=== PATIENT | female | born 1945 | race Asian ===

== ENCOUNTER 2018-03-16 20:16 | Inpatient (IN) | payer OTHER ==
[~2018-03-16] VITALS: Ht 147.3 cm; Wt 49.5 kg
[2018-03-16] MEDS ORDERED: LEVOTHYROXINE75 MCG PO (21:03)
[2018-03-16] MEDS ORDERED: POTASSIUM CHLO10 ME1 PO (21:03)
[2018-03-16] MEDS ORDERED: LOSARTAN POTASS50 MG PO (21:04)
[2018-03-16] MEDS ORDERED: HYDROCHLOROTHIA25 MG PO (21:04)
[2018-03-16] MEDS ORDERED: OMEPRAZOLE20 MG PO (21:05)
--- NOTE | 2018-03-16 23:15 | NUR ---
RECEIEVED PT TO FLOOR VIA STRETCHER. PT IS A/O. FAMILY AT BEDSIDE. PT REPORTS NO PAIN AT THIS TIME. ORIENTED TO ROOM. MEDICATION INFUSING. RESPIRATIONS EQUAL. ASSESSMENT COMPLETED.
--- NOTE | 2018-03-16 23:38 | NUR ---
VITALS AND I&OS DONE AND CHARTED. ASKED PT DAUGHTER IF SHE WANTED ANYTHING TO DRINK? SHE STATED NO. BEDSIDE TABLE AND CALL LIGHT WITHIN REACH.
--- NOTE | 2018-03-17 00:05 | NUR ---
BLOOD STARTED, DOUBLE CHECKED BY DIANA RN. VS TAKEN AND STABLE. THIS RN WILL SIT WITH PT.
--- NOTE | 2018-03-17 00:20 | NUR ---
NO REACTIONS AT THIS TIME. VSS. RESPIRATIONS EQUAL AND NONLABORED. REPORTS NO PAIN AT THIS TIME. CALL LIGHT IN REACH. WILL CONT TO MONITOR.
--- NOTE | 2018-03-17 01:35 | NUR ---
VITALS DONE AND CHARTED.
--- NOTE | 2018-03-17 02:17 | NUR ---
PT SBA TO BATHROOM. REPORTS NO PAIN. BACK TO BED. TOLERATED WELL. CALL LIGHT IN REACH.
--- NOTE | 2018-03-17 03:32 | NUR ---
BLOOD COMPLETED. NO ACUTE REATIONS NOTED. PT TOLERATED WELL. VSS. RESPIRATIONS EQUAL AND NONLABORED. NO FLANK PAIN REPORTED.
--- NOTE | 2018-03-17 04:36 | NUR ---
VITALS DONE AND CHARTED. HELPED PT TO THE BATHROOM AND BACK TO BED. BEDSIDE TABLE AND CALL LIGHT WITHIN REACH. SON IN THE ROOM WHEN I LEFT.
--- NOTE | 2018-03-17 06:33 | NUR ---
VITALS AND I&OS DONE AND CHARTED. BEDSIDE TABLE AND CALL LIGHT WITHIN REACH.
--- NOTE | 2018-03-17 07:28 | NUR ---
PATIENT RESTING, EYES CLOSED, CALL LIGHT IN REACH, SON IN ROOM.
--- NOTE | 2018-03-17 07:46 | NUR ---
RECIEVED BEDSIDE REPORT FROM GERMAIN MCNALLY. PT IN BATHROOM. NON-[place] ISLANDER SPEAKING, SON AT BEDSIDE TO TRANSLATE. PT APPEARS TO BE CONFUSED WITH CARES. PT PLESANT, DOES NOT APPEAR TO BE IN PAIN OR DISSTRESS AT THIS TIME.
--- NOTE | 2018-03-17 08:31 | NUR ---
PATIENT RESTING IN BED, SON IN ROOM. RN IN ROOM. THIS EDUCATIONAL TECHNOLOGIST ASSISTED PATIENT TO WASH HANDS AND FACE WITH WARM WASH CLOTH. ORAL CARE SET UP IN BATHROOM FOR PATIENT. VITALS TAKEN. PATIENT CALL LIGHT IN REACH. NO OTHER NEEDS AT THIS TIME.
--- NOTE | 2018-03-17 09:54 | NUR ---
PT SIGNED CONSENT. NO QUESTIONS PER PT AND SON.
--- NOTE | 2018-03-17 10:17 | NUR ---
PT LEFT THE FLOOR TO OR FOR SCOPE. SON WENT WITH PT TO TRANSLATE.
--- NOTE | 2018-03-17 11:14 | NUR ---
PT RETURNED TO FLOOR. REPORT FROM PACU, NO ACTIVE BLEEDS, COLONOSCOPY SCHEDULED FOR 0900 03/18. PT REPORTS SORE THROAT FROM ORAL AIRWAY, NO OTHER PAIN. PROFROL ONLY GIVEN. NO NAUSEA NO VOMITING.
--- NOTE | 2018-03-17 11:18 | NUR ---
03/17/18 1118 PERLA,GILLIAN Zaldivar 1053: ORAL AIRWAY OUT. SON AT BEDSIDE TO HELP TRANSLATE. 1100: PATIENT TRANSITIONED TO ROOM AIR. 1108: PATIENT TRANSFERRED BACK TO M/S ROOM. REPORT GIVEN TO M/S RN.
--- NOTE | 2018-03-17 11:48 | NUR ---
MED REC COMPLETE
--- NOTE | 2018-03-17 13:11 | NUR ---
PATIENT RESTING IN BED, EYES CLOSED. PATIENT AWOKE BREIFLY THIS DIRECTOR DIETETICS DEPARTMENT REMOVED PATIENT'S TELEMETRY UNIT. PATIENT'S SON STATES PATIENT DOES NOT WANT TO SHOWER TODAY. PATIENT CALL LIGHT IN REACH. NO OTHER NEEDS AT THIS TIME.
--- NOTE | 2018-03-17 14:08 | NUR ---
pt is resting in bed safely with call light in reach and son in room. pt did not need anything at the moment
--- NOTE | 2018-03-17 14:35 | NUR ---
PT'S SON REPORTS PT "GOT GOOD REST". MD ADVANCED DIET TO CLEAR LIQUIDS UNTIL MIDNIGHT, GAVE PT APPLE JUICE, WATER, AND JELLO. PT TOLERATING WELL AND VERY HAPPY.
--- NOTE | 2018-03-17 14:39 | EKG ---
[facility] [address] [facility] [place] [address] Signed Normal sinus rhythm Normal ECG No previous ECGs available Confirmed by JASBIR SOLARES MD ([id number]) on 03/17/2018 2:39:35 PM Electronically Signed By: JASBIR SOLARES MD 03/17/18 1439 PATIENT NAME: SALDANASONIYA KEIRA Electrocardiogram DATE OF : 45 PHYSICIAN: JASBIR SOLARES MD REPORT #: [id number] REPORT IS CONFIDENTIAL AND NOT TO BE RELEASED WITHOUT AUTHORIZATION
--- NOTE | 2018-03-17 15:26 | NUR ---
RN GAVE PT BOWEL PREP FLUIDS. EXPLAINED TO SON AND GRANDDAUGHTER THE MEDICATION AND REASONS FOR IT. EXPLAINED TOMORROWS PROCEDURE.
--- NOTE | 2018-03-17 17:46 | NUR ---
PT HAD EGD SCOPE THIS AM. TOLERATED WELL. NO EVIDENCE OF ACTIVE BLEEDING FOUND, MILD PATCHES OF ENERITIS FOUND. ONE AREA SENT FOR BIOPSY. PT RETURNED ON CLEAR LIQUIDS. COLONOSCOPY SCHEDULED FOR 0900 ON 03/18. BOWEL PREP STARTED, NO EFFECT AT THIS TIME. NPO AT MIDNIGHT. PT IS NON-CANADIAN SPEAKING, FAMILY AT BEDSIDE TO ASSIST WITH TRANLATING. PT VOIDING WELL, D5LR RUNNING AT 75ML/HR.
--- NOTE | 2018-03-17 18:29 | NUR ---
Upon entering the room pt was slid down in bed, I assisted her to scoot up higher in bed to a more comfortable position. pt is now resting safely with call light in reach and son in room. pt did not need anything at the moment
--- NOTE | 2018-03-17 20:38 | NUR ---
VITALS AND I&OS DONE AND CHARTED. BEDSIDE TABLE AND CALL LIGHT WITHIN REACH. PT NEEDS NOTHING ELSE AT THIS TIME.
--- NOTE | 2018-03-17 23:45 | NUR ---
PT CALLED AFTER USING RESTROOM TO HELP GET THE BATHROOM CLEANED UP AFTER DIARRHEA EPISODE. CLEANED UP AND PT DENIES FURTHER NEEDS.
--- NOTE | 2018-03-18 | NUR ---
PT PLACED ON NPO STATUS. ABLE TO FINISH BOWEL PREP. NO BM OF THIS TIME. EDUCATED ON MEDICATION. PT AWARE OF PURPOSE. CALL LIGHT IN REACH. REPORTS NO OTHER NEEDS. CHAPSTICK GIVEN FOR COMFORT.
--- NOTE | 2018-03-18 01:30 | NUR ---
MANY FAMILY MEMBERS AT BEDSIDE. EDUCATED ON IMPORTANCE OF PT REST AND SCHEDULE. FAMILY AGREED TO LET PT REST FOR THE NIGHT. EDUCATED SON ON MEDICATION GIVEN AND PENDING RESULTS OF BOWEL PREP. PT IMMEDIATELY OOB AFTER FAMILY LEFT TO BATHROOM FOR LG LIQUID STOOL. BACK TO BED TO REST FOR THE NIGHT. CALL LIGHT IN REACH. REPORTS NO OHTER NEEDS AT THIS TIME.
--- NOTE | 2018-03-18 03:03 | NUR ---
PT OOB TO BATHROOM FOR LG LIQUID BM. BACK TO BED. NO OTHER NEEDS. CALL LIGHT IN REACH.
--- NOTE | 2018-03-18 03:16 | NUR ---
PT INCONTINENT OF BOWEL. OOB TO BATHROOM. LG LIQUID BM. HELPED CLEAN PT AND CHANGE LINENS. PT BACK TO BED. CALL LIGHT IN REACH.
--- NOTE | 2018-03-18 04:00 | NUR ---
PT APPEARS TO BE SLEEPING. CALL LIGHT IN REACH. RESPIRATIONS EQUAL AND NONLABORED.
--- NOTE | 2018-03-18 04:01 | OR ---
[facility] [address] [place], [place] [address] Signed DATE OF OPERATION: 03/17/2018 SURGEON: Abram Everett MD UPPER ENDOSCOPY REPORT PREOPERATIVE DIAGNOSES: 1. Anemia. 2. Melena. POSTOPERATIVE DIAGNOSIS: Very mild distal patchy gastritis. PROCEDURE: EGD with CLOtest and biopsies of the antrum. ESTIMATED BLOOD LOSS: None. FINDINGS: No evidence of any blood in the stomach. No ulcerations. Very minimal patchy inflammation around the antrum. Clinically doubtful if this is the source of her melena. INDICATIONS: Soniya is a 72-year-old lady from [place] who came to the emergency room with upper abdominal pain, melena, nausea and dizziness. She was found to be anemic with a hemoglobin of 7.4. She was admitted to the Internal Medicine Service and received a unit of packed red blood cells last night. Her hemoglobin is now 8.9. Mean cell volume is good at 98. BUN is good at 10 and her creatinine is good at 0.6. INR 0.8, PTT 26 and other tests are all fine. I had been asked to see her as a general surgeon on-call for consideration of upper and lower endoscopy. I checked her records and she went through the same scenario in 2009 and in 2011. She has had upper and lower endoscopy twice before and they were all negative except for a tiny 3 mm polyp in the mid rectum. I had reviewed this with Soniya and her son. We reviewed the idea of repeating the upper and lower endoscopy and if those were negative, she could consider a small bowel follow-through. If that is negative, she could consider a capsule endoscopy. I reviewed upper endoscopy with him along with the risks including, but not limited to gas bloating, crampy abdominal pain, bleeding, perforation, requiring surgery, and missed diagnosis. We also discussed the need for IV conscious sedation. They had expressed Electronically Signed By: ABRAM EVERETT MD 03/18/18 0401 PATIENT NAME: SONIYA SALDANA OPERATIVE REPORT DATE OF : 45 REPORT #: [id number] PHYSICIAN: ABRAM EVERETT MD PCP: RON MCQUEEN MD REPORT IS CONFIDENTIAL AND NOT TO BE RELEASED WITHOUT AUTHORIZATION [facility] [address] [place], [place] [address] Signed understanding and wished to proceed. DESCRIPTION OF PROCEDURE: Soniya was taken into our endoscopy suite and placed in the supine semi-recumbent position. The posterior oropharynx was anesthetized with Hurricaine spray. A bite block was utilized for the case. She was given IV sedation with propofol per our nurse director of music therapy. The adult gastroscope was introduced and advanced quite easily out into the third portion of the duodenum under direct visualization of camera. The duodenum and pyloric channel were unremarkable. The antrum showed just a couple of areas of very superficial patchy erythematous changes. We went and took a biopsy from the antrum along with a biopsy for CLOtest. Upon retroflexion of the scope, the incisura, body, and fundus of the stomach were unremarkable. I saw no evidence of hiatal hernia. The scope was withdrawn up through the area of the GE junction, which was compliant without stricture. I saw no gastric or esophageal varices. There was very minimal disruption to the Z-line. The middle and upper esophagus were fine. After this, the gas was suctioned out and the gastroscope removed. Soniya tolerated the procedure quite well. RECOMMENDATIONS: Soniya and we returned to her hospital bed today. She will go through her liquid bowel prep today and we will do her colonoscopy tomorrow. If that is negative, she should consider a small bowel follow-through and/or a capsule endoscopy. Abram Everett MD ALB/MODL /[id number] cc: MD Abram Hdz MD Copies: RON MCQUEEN MD Electronically Signed By: ABRAM EVERETT MD 03/18/18 0401 PATIENT NAME: SONIYA SALDANA [facility] OPERATIVE REPORT DATE OF : 45 REPORT #: [id number] PHYSICIAN: ABRAM EVERETT MD PCP: RON MCQUEEN MD REPORT IS CONFIDENTIAL AND NOT TO BE RELEASED WITHOUT AUTHORIZATION [address] [address] Signed ABRAM EVERETT MD ~ Electronically Signed By: ABRAM EVERETT MD 07/15/18 0401 PATIENT NAME: SALDANASONIYA KEIRA OPERATIVE REPORT DATE OF : 45 REPORT #: [id number] PHYSICIAN: ABRAM EVERETT MD PCP: RON MCQUEEN MD REPORT IS CONFIDENTIAL AND NOT TO BE RELEASED WITHOUT AUTHORIZATION
--- NOTE | 2018-03-18 04:01 | CONS ---
[facility] [address] [place], [place] [address] Signed DATE OF CONSULTATION: 03/17/2018 CHIEF COMPLAINT: Melena. HISTORY OF PRESENT ILLNESS: Abdulaziz is a 72-year-old [place]ian female who presents with right upper quadrant abdominal pain, some nausea, and dizziness and also 2 days of melena. She came to emergency room for evaluation. We can see that she had anemia with a negative upper and lower endoscopy back in 2009, and again negative upper endoscopy in 2011, and just a tiny 3 mm polyp removed from the rectum in 2011. She has been admitted to our Internal Medicine Service. She did receive 1 unit of packed red blood cells last night. I was asked to see her as a general surgeon on-call for upper endoscopy. Her son is here to interpret and he tells me she has had no vomiting of any blood, no bright red blood per rectum, but the stool is dark. This is very similar to what she had before. PAST MEDICAL HISTORY: Hypertension, hypothyroidism, anemia in 2009, and then acid reflux. PAST SURGICAL HISTORY: Negative upper and lower endoscopy in 2009, negative upper and lower endoscopy in 2011 except a 3 mm polyp in the rectum. SOCIAL HISTORY: She does not smoke or drink. She lives with her son and family. She does not drive. She speaks only [place]ian. Dr. Farooq Mcqueen is her primary care provider. She has 4 children total. They live in [place]. FAMILY HISTORY: Unremarkable. REVIEW OF SYSTEMS: She had 10 systems reviewed and this was unremarkable. ALLERGIES: None. MEDICATIONS: Levothyroxine, potassium chloride, hydrochlorothiazide, losartan, and Prilosec. PHYSICAL EXAMINATION: VITAL SIGNS: Her blood pressure is 138/73, heart rate is 82, respiratory rate 13, temperature is 98.4. She is 98% on room air. She is 4 feet 10 inches at 49 kg. Electronically Signed By: ABRAM EVERETT MD 03/18/18 0401 PATIENT NAME: ABDULAZIZ SALDANA YOU CONSULTATION DATE OF : 45 REPORT #: [id number] PHYSICIAN: ABRAM EVERETT MD PCP: FAROOQ MCQUEEN MD REPORT IS CONFIDENTIAL AND NOT TO BE RELEASED WITHOUT AUTHORIZATION [facility] [address] [place], [place] [address] Signed GENERAL: Abdulaziz is a 72-year-old [place]ian female lying supine in her hospital bed. Her son is at the bedside to interpret. She does not appear systemically ill or toxic. LUNGS: Clear to auscultation bilaterally. HEART: Regular rate and rhythm. ABDOMEN: Soft and flat. She seems to be a little tender in the suprapubic area. LABORATORY DATA: Her white count was 5.4, hemoglobin was 7.4. She received a unit of packed red blood cells and it is up to 8.9. Mean cell volume is good at 98. BUN is 10, creatinine 0.6. Urinalysis negative. INR 0.8. Liver function tests negative. Albumin 3.8. Troponin is negative. Lipase is negative and her PTT is 26. ASSESSMENT AND PLAN: Abdulaziz is a 72-year-old female who presents with recurrent anemia and what probably is some melena. I have been asked to see her for an upper endoscopy today. If that is negative, we will consider a colonoscopy tomorrow. I have reviewed upper and lower endoscopy with her and her son. They are very familiar with that process. They understand there is risk including, but not limited to gas bloating, crampy abdominal pain, bleeding, perforation, requiring surgery, and missed diagnosis. They have expressed understanding and would like to proceed. Abram Everett MD ALB/MODL /[id number] cc: MD Abram Hdz MD Copies: FAROOQ MCQUEEN MD, ANDREW L MD ~ Electronically Signed By: ABRAM EVERETT MD 03/18/18 0401 PATIENT NAME: ABDULAZIZ SALDANA CONSULTATION DATE OF : 45 REPORT #: [id number] PHYSICIAN: ABRAM EVERETT MD PCP: FAROOQ MCQUEEN MD REPORT IS CONFIDENTIAL AND NOT TO BE RELEASED WITHOUT AUTHORIZATION
--- NOTE | 2018-03-18 06:11 | NUR ---
VITALS AND I&OS DONE AND CHARTED. BEDSIDE TABLE AND CALL LIGHT WITHIN REACH. PT NEEDS NOTHING AT THIS TIME.
--- NOTE | 2018-03-18 06:14 | NUR ---
UP SLEPT SOME OFTHE NIGHT. OOB MULTIPLE DEIRDRE FOR BM. PLAN FOR COLONOSCOPY THIS AM. BM'S SEEM TO BE CLEARING UP IN COLOR. D5LR @ 75. PT NPO SINCE MIDNIGHT. SON AT BEDSIDE. PT DOESN'T CALL WHEN NEEDING THE NURSE AT TIMES.
--- NOTE | 2018-03-18 07:30 | NUR ---
RECIEVED BEDSIDE REPORT FROM GERMAIN MCNALLY. PT AWAKE AND IN BATHROOM DURING REPORT. SON SLEEPING IN ROOM. RN REPORTS "GOOD NIGHT, BOWEL PREP EFFECTIVE". PRE-PROCEDURE CHECKLIST STARTED, NEED CONSENT SIGNED. LR ON STRAIGHT TUBING HANGING. INSTRUCTED SON TO TELL PT TO REMOVE ATTEND PRIOR THE PROCEDURE.
--- NOTE | 2018-03-18 08:18 | NUR ---
PATIENT RESTING IN BED, CALL LIGHT IN REACH. PATIENT'S FAMILY IN ROOM. RN IN ROOM. NO OTHER NEEDS AT THIS TIME.
--- NOTE | 2018-03-18 09:08 | NUR ---
PT OFF THE FLOOR FOR PROCEDURE.
--- NOTE | 2018-03-18 09:45 | NUR ---
03/18/18 0945 PERLA,GILLIAN Zaldivar 0943: O2 MASK REMOVED. ORAL AIRWAY OUT.
--- NOTE | 2018-03-18 10:21 | NUR ---
PT RETURNED FROM SURGERY. PT SLEEPY, BUT WAKES TO VOICE AND TOUCH. PT'S SON REPORTS PT HAS NO NAUSEA OR PAIN. NO ACTIVE BLEEDING FOUND. SCD APPLIED TO BILAT LOWER LEGS. DIET ADVANCED TO SOFT.
--- NOTE | 2018-03-18 13:25 | NUR ---
PT APPEARS COMFORTABLE, IN NO DISTRESS. PT'S SON IS SLEEPING AND DID NOT WAKE UP. BED ALARM ON, SCD ON.
--- NOTE | 2018-03-18 14:20 | NUR ---
RN ASKED SON AND PT IF SHE WOULD LIKE A SHOWER. PT GOT OUT OF BED AND QUICKLY WENT TO THE BATHROOM TO GET IN THE SHOWER. RN MIMED TO THE PT TO SIT ON THE SHOWER CHAIR TO CLEAN OFF. IV SITES WRAPED, CLEAN TOWELS AND GOWN PROVIDED. RN HAD SON TO TELL PT TO SIT IN SHOWER CHAIR AND PULL THE BLUE CORD IF SHE HAS ANY ISSUES. SON IS AWARE THERE IS A CLEAN GOWN READY.
--- NOTE | 2018-03-18 14:45 | NUR ---
PT IS OUT OF THE SHOWER, CLEAN GOWN. LINENS CHANGED THIS AM WHILE SHE WAS IN THE PROCEDURE. ORAL CARE ENCOURAGED. IV PIGGYBACK OF MAGNESIUM HANGING AT THIS TIME, PT TOOK POTASSIUM WITH PUDDING. RANDA AT BEDSIDE PER HER REQUEST.
--- NOTE | 2018-03-18 15:45 | NUR ---
PT MAG RIDER INFILTRATED BOTH IVS. IV RESTARTED IN RIGHT HAND, 22G. FLUSHED WELL, BLOOD DRAW BACK. IV MAG RIDER SLOWED TO 30ML/HR. PT TOLERATED WELL. GRANDDAUGHTER IN ROOM TO ASSIST WITH TRANSLATION. INFILTRATED IVS REMOVED.
--- NOTE | 2018-03-18 15:51 | NUR ---
PATIENT RESTING IN BED, FAMILY IN ROOM. CALL LIGHT IN REACH. NO OTHER NEEDS AT THIS TIME.
--- NOTE | 2018-03-18 17:23 | NUR ---
PT HAD COLONOSCOPY THIS AM, NO ACTIVE BLEEDING FOUND. SEVERAL AREAS SENT TO [email or web address]. WILL HAVE SMALL BOWEL FOLLOW UP IN AM. PT DIET ADVANCED TO SOFT FOODS, TOLERATING WELL. PT PREFERS JELLO. DRINKING WATER. VOIDING WELL, MULTIPLE LOOSE BM. PT UP TO SHOWER THIS SHIFT, TOLERATED WELL. BOTH IVs INFILTRATED WITH MAG RIDER. NEW IV IN RIGHT HAND, MAG RIDER INFUSION SLOWED AND COMPLETED. GRANDDAUGHTER IN ROOM TO ASSIST WITH COMMUNICATION.
--- NOTE | 2018-03-18 18:21 | NUR ---
PATIENT SITTING UP ON EDGE OF BED. PATIENT EATING DINNER, FAMILY IN ROOM. CALL LIGHT IN REACH. NO OTHER NEEDS AT THIS TIME.
--- NOTE | 2018-03-18 20:00 | NUR ---
BEDSIDE REPORT FROM COLLIN GROVES. PT IN BED, GRANDDAUGHTER AT BEDSIDE. REPORTS NO PIAN AT THIS TIME. TOLERATING SOFT DIET WITH NO N/V. CALL LIGHT IN REACH. REPORTS NO OTHER NEEDS.
--- NOTE | 2018-03-18 21:13 | NUR ---
VITALS AND I&OS DONE AND CHARTED. BEDSIDE TABLE AND CALL LIGHT WITHIN REACH.
--- NOTE | 2018-03-18 21:13 | NUR ---
ASSESSMENT COMPLETED. PT REPORTS 2/10 PAIN IN LLQ. REOPRTS IT TOLERABLE AT THIS TIME. POSSIBLY RELATED TO DIET AT HOSPITAL. BOWEL TONES ACTIVE. HEART SOUNDS NORMAL. LUNGS CLEAR. CMS INTACT. NO OTHER NEEDS. CALL LIGHT IN REACH. PT INDEPENDENT IN ROOM.
--- NOTE | 2018-03-18 23:46 | NUR ---
FAMILY HAS ARRIVED TO VISIT. NO NEEDS. AT THIS TIME. CALL LIGHT IN REACH.
--- NOTE | 2018-03-19 | NUR ---
PT PLACED ON NPO STATUS FOR SMALL BOWEL FOLLOW THROUGH THIS AM.
--- NOTE | 2018-03-19 02:17 | NUR ---
PT APPEARS TO BE SLEEPING. CALL LIGHT IN REACH. RESPIRAIOTNS EQUAL AND NONLABORED.
--- NOTE | 2018-03-19 04:00 | NUR ---
PT APPEARS TO BE SLEEPING. RESPIRATIONS EQUAL AND NONLABORED.
--- NOTE | 2018-03-19 06:44 | NUR ---
PT SLEPT THROUGH OUT THE NIGHT. SMALL BOWEL FOLLOW THROUGH THIS AM. NO PAIN. TOLERATING SOFT DIET. NPO SINCE MIDNIGHT. VOIDING WELL. ABD SOFT NONDISTENDED.
--- NOTE | 2018-03-19 07:07 | OR ---
[facility] [address], [place] [address] Signed DATE OF OPERATION: 03/18/2018 SURGEON: Abram Everett MD PREOPERATIVE DIAGNOSES: 1. Recurrent anemia. 2. Possible melena. POSTOPERATIVE DIAGNOSIS: Unremarkable colonoscopy including terminal ileum. PROCEDURE PERFORMED: Colonoscopy with random cold biopsies in the terminal ileum and colon. ESTIMATED BLOOD LOSS: None. FINDINGS: There was no source of bleeding noted. There was no diverticulosis. No polyps. No inflammatory changes and no blood in the colon and no black tarry stool. INDICATIONS FOR PROCEDURE: Soniya is a 72-year-old Turkish lady, who I have met previously. She has been in the hospital now the third time with anemia and of course cause her to be dizzy. There was some concern she had melena, but when I talked to her son, he told me there was no black or red stool with our bowel prep. When she came to the emergency room, she was anemic with a hemoglobin of 7.4. She was therefore admitted to the Internal Medicine Service and received 1 unit of packed red blood cells. Her hemoglobin improved to 8.9. Mean cell volume was normal at 98. BUN was good at 10, creatinine 0.6, INR 0.8, and her PTT was 26 and other laboratory work was fine. We performed her third upper endoscopy yesterday since 2009 and we found very minimal tiny bit of patchy gastritis, certainly not enough. This is not enough to explain her anemia. We took our routine biopsies and repeat biopsy for CLOtest as well. Consequently, we put her through a bowel prep yesterday and she comes down today for the colonoscopy. Her son has been able to come and help interpret. Soniya understands the nature of colonoscopy along with its risks including, but not limited to gas bloating, crampy abdominal pain, bleeding, perforation, requiring surgery, and missed diagnosis. She had expressed understanding and wished to proceed. PROCEDURE NOTE: Electronically Signed By: ABRAM EVERETT MD 03/19/18 0707 PATIENT NAME: SONIYA SALDANA OPERATIVE REPORT DATE OF : 45 REPORT #: [id number] PHYSICIAN: ABRAM EVERETT MD PCP: FAROOQ MCQUEEN MD REPORT IS CONFIDENTIAL AND NOT TO BE RELEASED WITHOUT AUTHORIZATION [facility] [address], [place] [address] Signed Soniya was taken into our endoscopy suite and placed in the left lateral decubitus position. She was given IV sedation with propofol per our nurse undercar specialist. A digital rectal exam was performed and this was unremarkable. The adult colonoscope was introduced and advanced all around into the cecum under direct visualization of camera without difficulty. Her prep was quite good. We turned the scope, went into the terminal ileum about 10-12 cm. It was very healthy and no evidence of any inflammation. We went ahead and took a biopsy from the terminal ileum for pathologic review. The scope was withdrawn back into the cecum. We slowly withdrew the scope throughout the colon and rectum. We saw no evidence of any pathology throughout the entire colon or rectum. We went ahead and took several random biopsies in the colon for documentation. Once in the rectum, the scope had been retroflexed and there was just enough room in her rectum and we could not see any pathology above the anal canal. After this, the gas was suctioned out and the colonoscope removed. Soniya tolerated the procedure quite well. RECOMMENDATIONS: Soniya will be returned to her room and written for small-bowel follow-through in the morning. If that is negative, she needs to consider a capsule endoscopy and if that is negative, she should see a office services manager. Abram Everett MD ALB/MODL /[id number] cc: Farooq Mcqueen MD Patient's Chart Abram Everett MD Copies: FAROOQ MCQUEEN MD, ANDREW L MD ~ Electronically Signed By: ABRAM EVERETT MD 03/19/18 0707 PATIENT NAME: SONIYA SALDANA [facility] OPERATIVE REPORT DATE OF : 45 REPORT #: [id number] PHYSICIAN: ABRAM EVERETT MD PCP: FAROOQ MCQUEEN MD REPORT IS CONFIDENTIAL AND NOT TO BE RELEASED WITHOUT AUTHORIZATION
--- NOTE | 2018-03-19 07:21 | NUR ---
RECIEVED BEDSIDE REPORT FROM GERMAIN MCNALLY. PT WAS AWAKE, SITTING ON THE EDGE OF THE BED. PT WAS ABLE TO COMMUNICATE THERE WAS URINE IN THE HAT. SON IS IN ROOM AND REPORTS SHE HAS NO CONCERNS AT THIS TIME. ANEMIA EDUCATION GIVEN IN MALAY.
--- NOTE | 2018-03-19 07:31 | NUR ---
SPOKE WITH [facility] RE: SMALL BOWEL FOLLOW THROUGH FOR THIS AM. THEY WILL SCHEDULE AFTER 0800 WHEN THE RADIOLOGIST COMES IN.
--- NOTE | 2018-03-19 09:56 | NUR ---
PT LAYING IN BED. PT DOES NOT WANT TO SHOWER AT THIS TIME, SAYS SHE WILL CALL IF SHE DOES. DENIES ANY NEEDS. CALL LIGHT WITHIN REACH.
--- NOTE | 2018-03-19 12:46 | NUR ---
PT FINISHED LUNCH. IV TAKEN OUT BY NURSE AND DISCHARGE VS DONE. PT GETTING DRESSED. FAMILY IN ROOM.
--- NOTE | 2018-03-19 14:24 | NUR ---
CALLED AND SPOKE WITH PT'S POA, DAUGHTER IN LAW, GERONIMO. GAVE DISCHARGE INSTRUCTIONS OVER THE PHONE. POA VERBALIZED UNDERSTANDING OF INSTRUCTIONS.
== END 2018-03-19 12:51 | disposition home or self-care (01) | DRG 392 ==
LOC: ED 20:16 → MS 22:44
PROVIDERS: ADMIT Internal Medicine
PROC: 30233N1 Transfusion of Nonautologous Red Blood Cells into Peripheral Vein, Percutaneous Approach (ICD-10-PCS; 2018-03-15)
PROC: 0DBB8ZX Excision of Ileum, Via Natural or Artificial Opening Endoscopic, Diagnostic (ICD-10-PCS; 2018-03-15)
PROC: 0DBE8ZX Excision of Large Intestine, Via Natural or Artificial Opening Endoscopic, Diagnostic (ICD-10-PCS; 2018-03-15)
PROC: 0DB78ZX Excision of Stomach, Pylorus, Via Natural or Artificial Opening Endoscopic, Diagnostic (ICD-10-PCS; principal; 2018-03-16)
DX: K29.70 Gastritis, unspecified, without bleeding (principal); K92.1 Melena; E87.6 Hypokalemia; D50.0 Iron deficiency anemia secondary to blood loss (chronic); E03.9 Hypothyroidism, unspecified; K21.9 Gastro-esophageal reflux disease without esophagitis; R39.15 Urgency of urination; I10 Essential (primary) hypertension
CPT/HCPCS: 36415; 74250; 80048; 80053; 81001; 83690; 83735; 84100; 84484; 85025; 85610; 85730; 86677; 86850; 86900; 86901; 86920; 93005; 93010; 96374; 96375; 99285; J2405; J2704; J3475; J7030; J7120

== ENCOUNTER 2018-10-31 11:50 | Inpatient (IN) | payer OTHER ==
[~2018-10-31] VITALS: Ht 147.3 cm; Wt 48.1 kg
[~2018-10-31 11:50] MED LIST: HYDROCHLOROTHIA25 MG PO; LEVOTHYROXINE75 MCG PO; LOSARTAN POTASS50 MG PO; OMEPRAZOLE20 MG PO; POTASSIUM CHLO10 ME1 PO
--- NOTE | 2018-10-31 14:50 | NUR ---
73 YEAR OLD FEMALE PATIENT ADMITTED TO CCU VIA STRETCHER UNDER DR. SOLARES FROM ED WITH DX OF HYPONA, HYPO K, N/V. PATINE DOES NOT SPEAK SAMI. DAUGHTER IN LAW IS HERE TO HELP WITH ADMISSION. PATIENT HAS BEEN FEELING ILL FOR APPROX LAST 5 DAYS WITH INCREASED N/V OVER LAST 2 DAYS. WAS SEEN IN CLINIC ON 10/29/18. PT MAIN COMPLAINT IS FEELING DIZZY WITH NAUSEA. SLIGHT ABD PAIN WITH PALPATION OF LLQ. HAS LEFT HIP NUMBNESS. K RIDER HANGING TO LEFT HAND SITE.
[2018-10-31] MEDS ORDERED: LEVOTHYROXINE25 MCG PO (15:29)
--- NOTE | 2018-10-31 15:40 | NUR ---
PHENERGAN 6.25 MG IV GIVEN FOR NAUSEA. PATIENT CONTINUE TO C/O LEFT HIP NUMBNESS.
--- NOTE | 2018-10-31 17:00 | NUR ---
PT UP OUT OF BED ON HER OWN. THIS RN ENTERED THE ROOM. PT APPEARS STABLE ON FEET, BUT PULLING ON LINE/TUBES. DENNISE AT BEDSIDE STATES "SHE NEEDS TO GO TO THE BATHRROOM". ASSISTED PT TO CAMMODE. PT NOW BACK TO BED. RE-EDUCATED DOMINICK AND PT THAT SHE NEEDS TO CALL FOR ASSISTANCE SO STAFF CAN HELP HER SAFELY TO THE BATHROOM. BED ALARM PLACED FOR PT SAFETY.
--- NOTE | 2018-10-31 17:48 | NUR ---
Meds reconciled with pharmacy records.
--- NOTE | 2018-10-31 19:00 | NUR ---
DR. SOLARES AWARE OF LABS. ORDERS RECIEVED.
--- NOTE | 2018-10-31 19:10 | NUR ---
D5W AT 650 ML/HR HUNG PER ORDERS. PO KCL 20 MEQ GIVEN. HOB ELEVATED. REPORT TO NEXT SHIFT.
--- NOTE | 2018-10-31 19:30 | NUR ---
PT RESTING IN BED WITH EYES CLOSED. RESP EVEN AND UNLABORED. BED ALARM ON.
--- NOTE | 2018-10-31 19:56 | NUR ---
RECEIVED REPORT FROM GERMAIN AVILES. pt RESTING IN BED WITH EYES CLOSED. WHITEBOARD UPDATED. BED ALARM ON, CURTAIN OPEN TO NURSES STATION.
--- NOTE | 2018-10-31 21:58 | NUR ---
UP TO BSC TO VOID/BACK TO BED. PTS GRANDDAUGHTER STATES THAT PT REPORTS FEELING DIZZY WHILE SHE WAS OUT.
--- NOTE | 2018-11-01 00:19 | NUR ---
FAMILY IN WITH PT. ASSESSMENT COMPLETED, PT DENIES PAIN OR NEEDS AT THIS TIME. AWAKE SITTING UP IN BED TALKING WITH FAMILY.
--- NOTE | 2018-11-01 02:15 | NUR ---
PT AWAKE IN BED WITH FAMILY IN ROOM. UP TO BSC WITH ASSIST, FAMILY STATES SHE STATES SHE IS STILL DIZZY.
--- NOTE | 2018-11-01 04:49 | NUR ---
UP TO BSC TO VOID, BACK TO BED. ASSESSMENT DONE. PT REPORTS STILL FEELING DIZZY TO SON.
--- NOTE | 2018-11-01 06:39 | NUR ---
CALL TO DR SOLARES TO INFORM OF CRITICAL VALUE NA 118. NO NEW ORDERS AT THIS TIME.
--- NOTE | 2018-11-01 08:22 | NUR ---
IV SITE INTACT, NO SWELLING OR REDNESS NOTED, PT DENIES PAIN WITH FLUSH. PT DENIES PAIN, NAUSEA, AND SOB IN GENERAL. PT SPEAKS SCOTTISH ONLY, SON IS AT THE BEDSIDE TRANSLATING. PT IS COOPERATIVE AND POLITE. BREAKFAST ORDERED FOR PT.
--- NOTE | 2018-11-01 09:25 | NUR ---
PT ABLE TO REHANA 30% OF BREAKFAST. PT'S SON AT THE BEDSIDE ABLE TO ANSWER QUESTIONARE FOR MRI SCREENING TOOL. PT DENIES ANY OTHER NEEDS AT THIS TIME.
--- NOTE | 2018-11-01 09:56 | NUR ---
PT ABLE TO SWALLOW PILLS EASILY. PT BOOSTED UP IN BED FOR COMFORT. PT DENIES ANY NAUSEA AT THIS TIME.
--- NOTE | 2018-11-01 11:19 | NUR ---
Pt requested bedside commode. PT stood independently, stand pivot to bedside commode with SBA. Pt reported still feeling dizzy.
--- NOTE | 2018-11-01 13:05 | NUR ---
PT scheduled to go to MRI by wheelchair. Translation service couldn't identify patient language to communicate procedure to PT. MRI rescheduled for afternoon after family returns.
--- NOTE | 2018-11-01 14:10 | NUR ---
pt up ambulated to the bathroom with minimal stand by assist. pt had slightly loose stool, medimum size. pt given sponge bath at the sink in the bathroom, pt able to assist with bath. clean gown and underwear in place. pt ambluated back to bed. warm blankets provided. call light within reach.
--- NOTE | 2018-11-01 16:27 | NUR ---
PT abulated to bedside commode. Transfered to chair after toileting. PT's grandaugher in room with her. Sadi is translating MRI procedure information to PT. Patient is agreeable to procedure.
--- NOTE | 2018-11-01 17:05 | NUR ---
PT LEFT CCU WITH RN, IMAGING PERSONEL, AND FAMILY MEMBER TO GO FOR MRI. PT UP OUT OF CHAIR TO WHEELCHAIR WITH MINIMAL STANDBY ASSIST. PT COOPERATIVE AND ORIENTED X4. FAMILY ABLE TO TRANSLATE EFFECTIVLY.
--- NOTE | 2018-11-01 18:31 | NUR ---
pt sitting up in chair eating dinner. pt family member at the bedside.
--- NOTE | 2018-11-01 19:30 | NUR ---
REPORT RECEIVED FROM ISAI GROVES. PT UP IN CHAIR, GRANDDAUGHTER IN ROOM. IN TO CHECK ON PT, PTS GRANDDAUGHTER INTERPRETTING, STATES PT DENIES PAIN, NAUSEA, DOES NOT NEED ANYTHING AT THIS TIME.
--- NOTE | 2018-11-01 21:24 | NUR ---
UP TO BSC TO VOID. ASSESSMENT DONE. BACK TO BED, WARM BLANKET PROVIDED. PT TRYING TO SLEEP FOR THENIGHT.
--- NOTE | 2018-11-02 00:45 | NUR ---
UP TO BSC. STATES THROUGH HER SON THAT SHE IS A LITTLE BIT DIZZY. BACK TO BED WITH WARM BLANKET.
--- NOTE | 2018-11-02 02:03 | NUR ---
PT RESTING WITH EYES CLOSED. RESP EVEN AND UNLABORED.
--- NOTE | 2018-11-02 05:30 | NUR ---
UP TO BR THEN BACK TO BED. DENIES NEEDS.
--- NOTE | 2018-11-02 08:20 | NUR ---
PATIENTS DAUGHTER IN LAW IS IN ROOM TO TRANSLATE. PATIENT STATED SHE HAS NO COMPLAINTS OF PAIN. PATIENT APPEARS TO BE IN NO OBVIOUS DISCOMFORT OR DISTRESS. PATIENT AMBULATED FROM BED TO BATHROOM TO CHAIR WITH NO DIFFICULTIES. PATIENT BREAKFAST WAS ORDERED. PATIENT WAS GIVEN HER CALL LIGHT. HAD NO QUESTIONS AT THIS TIME.
--- NOTE | 2018-11-02 08:22 | NUR ---
PT awake and in bed. Daughtere in law in room. Pt ambulated well to bathroom with minimal SBA. Pt brushed teeth and washed face/hands in bathroom. Ordered oatmeal with brown sugar and apple juice for breakfast. Pt to be transferred to med/surg unit later this afternoon for additional night observation.
--- NOTE | 2018-11-02 08:39 | NUR ---
DR STEWART INTO SEE PT, PT WILL BE TRANSFERED TO THE M/S UNIT AT SOME POINT TODAY. PT PLACED ON TELE #7. FAMILY INTERPERTED FOR STAFF THIS AM. ALL QUESTION ANSWERED AT THIS TIME.
--- NOTE | 2018-11-02 09:38 | NUR ---
PT ambulated to shower in room 126. PT required minimal assistance. Patient performed hygiene; body wash, shampoo, conditioner independently. PT now sitting in chair in room. Daughter in law in room.
--- NOTE | 2018-11-02 13:15 | NUR ---
REPORT RECEIVED FROM GERMAIN ALEX. PT IS CURRENTLY SITTING UP IN BED. ON TELE #7, HR:79. PT DOES NOT APPEAR TO BE IN ANY DISTRESS. CALL LIGHT WITHIN REACH.
--- NOTE | 2018-11-02 14:06 | NUR ---
PT SEEN SITTING AT THE SIDE OF BED. WENT IN TO CHECK ON HER AND SHE POINTED TO THE BSC. UP WITH SBA TO BSC, VOIDED 150ML AND THEN RETURNED TO BED. PT APPEARED TO TOLERATE WELL. HR: 81 PER TELE. FRESH WATER PROVIDED PER PT, PT WELL UNDER HER DAILY LIMIT FOR HER FLUID RESTRICTION. CALL LIGHT WITHIN REACH, WILL CONTINUE TO MONITOR.
--- NOTE | 2018-11-02 14:24 | NUR ---
ATTEMPTED TO COMPLETE ASSESSMENT USING [employer] INTERPRETIVE COMPUTER. tHEY WERE UNABLE TO PROVE AN ELECTRICAL APPRENTICE TO SPEAK TAISHANESE. PT UUNABLE TO UNDERSTAND ROMANSH OR CANTONESE WHEN ELECTRICAL APPRENTICE ATTEMPTED TO SPEAK TO HER OIN CANTONESE. AWAITING RETURN CALL FROM [employer] WHEN THEY HAVE A ELECTRICAL APPRENTICE AVAUILABLE.
--- NOTE | 2018-11-02 16:10 | NUR ---
ASSESSMENT COMPLETED. PT APPEARS COMFORTABLE. LUNGS CLEAR, RA. HR REGULAR, TELE #7, HR 80'S. BOWEL TONES ACTIVE. SKIN APPEARS GROSSLY INTACT, NO EDEMA NOTED. VITAL SIGNS STABLE. IV PATENT, SALINE LOCKED. REGIONAL REHABILITATION DIRECTOR IN TO DRAW BLOOD SAMPLE. AFTERWARD, PT UP TO BSC WITH SBA, VOIDED 300ML DILUTE YELLOW URINE AND THEN RETURNED TO BED. CALL LIGHT REMAINS WITHIN REACH.
--- NOTE | 2018-11-02 17:47 | NUR ---
PT UP TO BSC WITH SBA, VOIDED 300ML. PT NOW SITTING UP IN CHAIR. CALL LIGHT WITHIN REACH.
--- NOTE | 2018-11-02 19:20 | NUR ---
REPORT RC'D FROM DAY SHIFT NURSE ANNA. REPORTS PT DOING WELL THROUGHOUT DAY, NO ACUTE CAHNGES, POSSIBLE DC HOME TOMORROW. PT UP IN CHAIR AT THIS TIME. FAMILY TO RETURN THIS EVENING.
--- NOTE | 2018-11-02 19:58 | NUR ---
PT UP IN CHAIR, NO FAMILY AT BEDSIDE, ATTEMPTED TO USE VIDEO BLACK PICKLER W/O SUCCESS. PT ALERT AND ABLE TO NOD YES AND NO, FOLLOWS COMMANDS DURING ASSESSMENT. SINUS RHYTHM ON TELE. LUNGS CLEAR THROUGHOUT AND TOELRATING ROOM AIR. ABD MILDLY DISTNEDED, BOWEL TONES ACTIVE THROUGHOUT. NO EDEMA NOTED. PULSES PALPABLE +2 IN ALL EXTREMITIES. PT AGREEABLE TO GO TO BED, SBA, GAIT STEADY. BED ALARM ON. CALL LIGHT WITHIN REACH.
--- NOTE | 2018-11-02 22:43 | NUR ---
PT RESTING IN BED WITH EYES CLOSED, RESPIATIONS EVEN AND UNLABORED, NO ACUTE CHANGES TO ASSESSMENT.
--- NOTE | 2018-11-03 00:29 | NUR ---
FAMILY AT BEDSIDE SPEAKING WITH PT. NO ACUTE CHANGES IN ASSESSMENT. DENIES OTHER NEEDS. CALL LIGHT WITHIN REACH.
--- NOTE | 2018-11-03 02:00 | NUR ---
PT ASSISTED TO BSC, GAIT STEADY. ASSISTED BACK TO BED. ASSESSMENT UNCHANGED. FAMILY MEMBERS AT BEDSIDE. FAMILY MEMBER ASSISTED WITH TRANSLATION. DENEIS PAIN, NAUSEA, OR OTHER NEEDS. STATES SHE IS SLEEPING WELL. CALL LIGHT WITHIN REACH.
--- NOTE | 2018-11-03 04:41 | NUR ---
NO ACUTE CAHNGES. PT RESTING WITH EYES CLOSED, RESPIRATIONS EVEN AND UNLABORED. FAMILY MEMBER AT BEDSIDE.
--- NOTE | 2018-11-03 06:38 | NUR ---
PT RESTED FOR MOST OF NIGHT. FAMILY REMAINS AT BEDSIDE. TELE#7, SINUS RHYTHM. LUNGS CLEAR THROUGHOUT, ON ROOM AIR. CARDIAC DIET WITH 1600 ML FLUID RESTRICTION. BOWEL TONES ACTIVE AND DENIES NAUSEA. DENIES PAIN. NO EDEMA. VOIDING QS.
[2018-11-03] MEDS ORDERED: SODIUM CHLORIDE1 GM PO (08:00)
--- NOTE | 2018-11-03 08:15 | NUR ---
PT UP AMBULATED IN THE [place] WAY WITH STAFF, THROUGH SON IT WAS REPORTED THAT SHE WAS A LITTLE DIZZEY, BUT APPEARED TO STEADY ON HER FEET. SON REMAINS AT THE BEDSIDE. PT BACK TO THE CHAIR AND CALL LIGHT WITHIN REACH.
--- NOTE | 2018-11-03 11:23 | NUR ---
PT DISCHARGE TO HOME WITH FAMILY THIS AM. ALL QUESTIONS ANSWERED AND SON SAID HE UNDERSTOOD WHAT WE WHERE TELLING HIM. ALL PERSONAL BELONGINGS GIVEN BACK AND PT JEWERLY THAT WAS GIVEN TO PT SON. PT TANPORTED VIA WC TO THE TRUCK AND SON DROVE HOME.
== END 2018-11-03 10:30 | disposition home or self-care (01) | DRG 645 ==
LOC: ED 11:50 → CCU 14:29
PROVIDERS: ADMIT Internal Medicine
DX: E22.2 Syndrome of inappropriate secretion of antidiuretic hormone (principal); E87.6 Hypokalemia; E83.42 Hypomagnesemia; E03.9 Hypothyroidism, unspecified; K21.9 Gastro-esophageal reflux disease without esophagitis; I10 Essential (primary) hypertension; Z79.899 Other long term (current) drug therapy; Z87.19 Personal history of other diseases of the digestive system
CPT/HCPCS: 36415; 70551; 71046; 80048; 80053; 81001; 83735; 83930; 83935; 84133; 84300; 84484; 84550; 85025; 96361; 96365; 96366; 96375; 97161; 99285-25; J1650; J2405; J2550; J3475; J3480; J7040; J7070

== ENCOUNTER 2019-01-15 14:55 | Emergency (ER) | payer OTHER ==
[~2019-01-15] VITALS: Ht 147.3 cm; Wt 48.1 kg
[~2019-01-15 14:55] MED LIST changes: +LEVOTHYROXINE25 MCG PO; +SODIUM CHLORIDE1 GM PO
[2019-01-15] MEDS ORDERED: HYDROCHLOROTHIA25 MG PO (15:12)
--- NOTE | 2019-01-15 16:03 | EKG ---
[facility] [address] [facility] [place] [address] Signed Normal sinus rhythm Normal ECG When compared with ECG of 16-MAR-2018 21:27, QT has shortened Confirmed by REESE STEWART MD ([id number]) on 01/15/2019 4:03:26 PM Electronically Signed By: REESE STEWART MD 01/15/19 1603 PATIENT NAME: SONIYA SALDANA KEIRA Electrocardiogram DATE OF : 45 PHYSICIAN: REESE STEWART MD REPORT #: [id number] REPORT IS CONFIDENTIAL AND NOT TO BE RELEASED WITHOUT AUTHORIZATION
== END 2019-01-15 17:40 | disposition home or self-care (01) ==
LOC: ED 14:55
DX: R53.1 Weakness (principal); I10 Essential (primary) hypertension; Z79.899 Other long term (current) drug therapy
CPT/HCPCS: 80053; 81001; 84484; 85025; 93005; 93010; 99284-25

== ENCOUNTER 2019-09-03 14:39 | Emergency (ER) | payer OTHER ==
[~2019-09-03] VITALS: Ht 147.3 cm; Wt 48.1 kg
[2019-09-03] MEDS ORDERED: BENICAR20 MG PO (17:20)
[2019-09-03] MEDS ORDERED: VITAMIN D350000 UNIT PO (17:21)
[2019-09-03] MEDS ORDERED: TENORMIN100 MG PO (17:21)
[2019-09-03] MEDS ORDERED: KLOR-CON 1010 MEQ PO (17:22)
[2019-09-03] MEDS ORDERED: LEVOXYL50 MCG PO (17:22)
--- NOTE | 2019-09-04 14:24 | EKG ---
[facility] [address] [facility] [place], [place] [address] Signed Normal sinus rhythm Normal ECG When compared with ECG of 15-JAN-2019 15:39, No significant change was found Confirmed by JASBIR SOLARES MD ([id number]) on 09/04/2019 2:23:43 PM Electronically Signed By: JASBIR SOLARES MD 09/04/19 1424 PATIENT NAME: SHANASONIYA KEIRA Electrocardiogram DATE OF : 45 PHYSICIAN: JASBIR SOLARES MD REPORT #: [id number] REPORT IS CONFIDENTIAL AND NOT TO BE RELEASED WITHOUT AUTHORIZATION
== END 2019-09-03 17:55 | disposition home or self-care (01) ==
LOC: ED 14:39
DX: I10 Essential (primary) hypertension (principal); Z79.899 Other long term (current) drug therapy
CPT/HCPCS: 70450; 80053; 81001; 83880; 84484; 85025; 93005; 93010; 96361; 96374; 96375; 99284-25; J1200; J2765; J7030

== ENCOUNTER 2019-09-13 08:46 | Emergency (ER) | payer OTHER ==
[~2019-09-13] VITALS: Ht 147.3 cm; Wt 48.1 kg
== END 2019-09-13 10:10 | disposition home or self-care (01) ==
LOC: ED 08:46
DX: I10 Essential (primary) hypertension (principal); Z79.899 Other long term (current) drug therapy
CPT/HCPCS: 99283

== ENCOUNTER 2022-03-11 21:29 | Emergency (ER) | payer MEDICARE ==
[~2022-03-11] VITALS: Ht 147.3 cm; Wt 48.5 kg
[~2022-03-11 21:29] MED LIST changes: +BENICAR20 MG PO; +KLOR-CON 1010 MEQ PO; +LEVOXYL50 MCG PO; +TENORMIN100 MG PO; +VITAMIN D350000 UNIT PO
[2022-03-11] MEDS ORDERED: LABETALOL HCL100 MG PO (21:48)
[2022-03-11] MEDS ORDERED: NORVASC10 MG PO (21:49)
== END 2022-03-11 23:56 | disposition home or self-care (01) ==
LOC: ED 21:29
DX: I10 Essential (primary) hypertension (principal); E03.9 Hypothyroidism, unspecified; K21.9 Gastro-esophageal reflux disease without esophagitis; Z79.899 Other long term (current) drug therapy
CPT/HCPCS: 36415; 70450; 80048; 81001; 85025; 96374; 96375; 99284-25; J2405

== ENCOUNTER 2022-11-02 19:22 | Emergency (ER) | payer MEDICARE ==
[~2022-11-02] VITALS: Ht 147.3 cm; Wt 51.5 kg
--- NOTE | ~2022-11-02 | EKG ---
[facility] [address] [facility] [place], [place] [address] Draft EK completed, results pending confirmation PATIENT NAME: SONIYA SALDANA Electrocardiogram DATE OF : 45 PHYSICIAN: PRELIMINARY REPORT #: [id number] REPORT IS CONFIDENTIAL AND NOT TO BE RELEASED WITHOUT AUTHORIZATION
[~2022-11-02 19:22] MED LIST changes: +LABETALOL HCL100 MG PO; +NORVASC10 MG PO
== END 2022-11-02 21:21 | disposition home or self-care (01) ==
LOC: ED 19:22
DX: I10 Essential (primary) hypertension (principal); E03.9 Hypothyroidism, unspecified; K21.9 Gastro-esophageal reflux disease without esophagitis; Z79.899 Other long term (current) drug therapy
CPT/HCPCS: 36415; 80053; 85025; 93005; 93010; 99283-25